=== PATIENT | female | born 1975 | race African-American/Black ===

== ENCOUNTER 2024-11-02 08:42 | Emergency (ER) | payer OTHER ==
[~2024-11-02] VITALS: Ht 167.6 cm; Wt 89.0 kg
[2024-11-02 08:44] VITALS: O2SAT 100
[2024-11-02 09:33] LABS: HEMATOCRIT. 41.1 % (36.0-48.0); HEMOGLOBIN. 12.9 g/dL (12.0-16.0); MEAN PLATELET VOLUME 7.9 fl (7.4-10.4); PLATELET 231 x1000/uL (130-400); RED BLOOD CELL COUNT 4.55 mill/uL (4.2-5.4); RED CELL DISTRIBUTION WIDTH 13.8 % (11.6-14.6)
[2024-11-02 09:51] LABS: CREATININE 0.9 mg/dL (0.6-1.0); UREA NITROGEN BLOOD 8 mg/dL (9-23)
[2024-11-02 09:52] LABS: TROPONIN I HIGH SENSITIVITY < 4 ng/L (3.0-34)
[2024-11-02 10:06] LABS: BAND% 1.0 % (1.0-6.0); LYMPHOCYTES % MANUAL 9.0 % (20.0-60.0); MONOCYTES % MANUAL 3.0 % (2.0-8.0); NEUTROPHILS % MANUAL 87.0 % (45.0-75.0); PLATELET ESTIMATE NORMAL
[2024-11-02 10:18] LABS: HCG SCREEN NEGATIVE
[2024-11-02 11:57] LABS: TROPONIN I HIGH SENSITIVITY < 4 ng/L (3.0-34)
[2024-11-02] MEDS: LACTATED RINGERS 1,000 ML IV SCH (13:28)
[2024-11-02] MEDS ORDERED: DOCUSATE SODIUM 100MG CAPSULE PO PRN (15:15)
[2024-11-02] MEDS ORDERED: IPRATROPIUM/ALBUTEROL 0.5-3(2.5)MG/3ML NEB NEB PRN (15:15)
[2024-11-02] MEDS ORDERED: CLONIDINE 0.1MG TABLET PO PRN (15:15)
[2024-11-02] MEDS ORDERED: ONDANSETRON HCL 4MG/2ML INJ IV PRN (15:15)
[2024-11-02 16:01] VITALS: BP 125/75; PULSE 81; RESP 16; TEMP 37.1; O2SAT 98
[2024-11-02] MEDS: SODIUM CHLORIDE 0.9% 1,000 ML IV ONE (16:33)
[2024-11-02] MEDS ORDERED: PANTOPRAZOLE 40MG DR TABLET PO PRN ×2 (17:00→17:15)
[2024-11-02] MEDS ORDERED: ACETAMINOPHEN 650MG/20.3ML UDC PO PRN (17:00)
[2024-11-03] MEDS ORDERED: SODIUM CHLORIDE 0.9% 1,000 ML IV SCH (09:00)
== END 2024-11-02 17:46 | disposition short-term general hospital (02) ==
LOC: ER 08:42 → ENRESERV 11-03 17:17 → CMPBEDREQ 11-03 19:25
DX: R55 Syncope and collapse (principal); F32.9 Major depressive disorder, single episode, unspecified; F41.9 Anxiety disorder, unspecified; G43.909 Migraine, unspecified, not intractable, without status migrainosus; J45.909 Unspecified asthma, uncomplicated; Z90.710 Acquired absence of both cervix and uterus; Z86.018 Personal history of other benign neoplasm; Z79.899 Other long term (current) drug therapy; Z79.624 Long term (current) use of inhibitors of nucleotide synthesis; Z79.890 Hormone replacement therapy; Z88.0 Allergy status to penicillin; Z88.5 Allergy status to narcotic agent
CPT/HCPCS: 99285; 96360; 70450; 96361; 71045; 80048; 84703; 83880; 83605; 85025; 84484; 93005; 36415; J7030